=== PATIENT | female | born 1995 | race Hispanic/Latino ===

== ENCOUNTER 2020-12-22 17:18 | Emergency (ER) | payer BC ==
--- NOTE | 2020-12-22 20:15 | Emergency Department Report ---
Blank Doc - Documentation Documentation: This is a 25-year-old female that presents with dizziness. 1- This is a initial triage assessment/medical screening only. Full assessment and work-up will be completed once the patient is in proper hospital gown, ED bed and in a private room setting. This initial assessment/diagnostic orders/clinical plan/ treatment(s) is/are subject to change based on pt's health status, clinical progression and re-assessment by fellow clinical providers in the ED. Further treatment and workup at subsequent clinical providers discretion. Patient/guardians urged not to elope from ED as their condition may be serious if not clinically assessed and managed. 2-labs 3-orthostatic vitals
[2020-12-22 20:30] LABS: Basophils # (Auto) 0.1 K/mm3 (0.0-0.1); Basophils % (Auto) 1.1 % (0.0-1.8); Eosinophils # (Auto) 0.1 K/mm3 (0.0-0.4); Eosinophils % (Auto) 1.3 % (0.0-4.3); Hemoglobin 13.8 gm/dl (10.1-14.3); Lymphocytes # (Auto) 1.7 K/mm3 (1.2-5.4); Lymphocytes % (Auto) 24.9 % (13.4-35.0); Mean Corpuscular HGB Conc 34 % (30-34); Mean Corpuscular Volume 92 fl (79-97); Monocytes # (Auto) 0.4 K/mm3 (0.0-0.8); Monocytes % (Auto) 6.3 % (0.0-7.3); Platelet Count 212 K/mm3 (140-440); Red Blood Count 4.48 M/mm3 (3.65-5.03); Red Cell Distribution Width 12.8 % (13.2-15.2)
[2020-12-22 20:34] LABS: Alanine Aminotransferase 19 units/L (7-56); Albumin 4.3 g/dL (3.9-5); Blood Urea Nitrogen 8 mg/dL (7-17); Calcium 9.3 mg/dL (8.4-10.2); Hemolysis Index 249
[2020-12-22 20:38] LABS: BUN/Creatinine Ratio 11
[2020-12-23] MEDS ORDERED: ONDANSETRON 4 MG ODT TAB PO ONE (08:03)
--- NOTE | 2020-12-23 08:06 | Emergency Department Report ---
ED General Adult HPI - General Chief complaint: Dizziness Stated complaint: DIZZYNESS Time Seen by Provider: 12/22/20 19:55 Source: patient Mode of arrival: Wheelchair Limitations: No Limitations - History of Present Illness Initial comments: 25-year-old female patient presents with complaints of near syncopal episode yesterday while at work. 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 She denies loss of consciousness. No preceding head injuries or headache. She also denies any vision changes, numbness/tingling/weakness in her limbs, confusion, memory loss, or difficulty with speech/ambulation. She reports she has had recurrent episodes similar to this for the past few years. She states she has been evaluated by neurology and other medical research assistant in no causes been found. Patient does report that the area she works in at work was very hot and states she has not been drinking much water due to nausea for the past 3 days. She states she is drinking less than 20 ounces of water a day. She denies any abdominal pain, fever/chills/sweats, cough, shortness of breath, or chest pain. No recent long travel, hemoptysis, leg pain/swelling, or history of DVT/PE. Patient does admit to being on control. - Related Data Previous Rx's Medication Instructions Recorded Last Taken Type Ondansetron [Zofran Odt] 4 mg PO Q8HR PRN #15 tab.rapdis 12/23/20 Unknown Rx Allergies Allergy/AdvReac Type Severity Reaction Status Date / Time No Known Allergies Allergy Unverified 12/22/20 19:14 ED Review of Systems ROS: Stated complaint: DIZZYNESS Other details as noted in HPI Constitutional: denies: chills, diaphoresis, fever, malaise, weakness Respiratory: denies: cough, shortness of breath Cardiovascular: denies: chest pain, palpitations, edema, syncope Gastrointestinal: denies: abdominal pain, nausea, vomiting Genitourinary: denies: urgency, dysuria, frequency, hematuria Musculoskeletal: denies: as per HPI Neurological: denies: headache, numbness, paresthesias, confusion, abnormal gait ED Past Medical Hx - Past Medical History Previous Medical History?: Yes Hx Asthma: Yes - Surgical History Past Surgical History?: Yes Additional Surgical History: tonsils - Medications Home Medications: Home Medications Medication Instructions Recorded Confirmed Last Taken Type Ondansetron [Zofran Odt] 4 mg PO Q8HR PRN #15 tab.rapdis 12/23/20 Unknown Rx ED Physical Exam - General Limitations: No Limitations General appearance: alert, in no apparent distress - Head Head exam: Present: atraumatic, normocephalic - Eye Eye exam: Present: normal appearance, PERRL, EOMI. Absent: scleral icterus - ENT ENT exam: Present: normal exam - Neck Neck exam: Present: normal inspection - Respiratory Respiratory exam: Present: normal lung sounds bilaterally. Absent: respiratory distress - Cardiovascular Cardiovascular Exam: Present: regular rate, normal rhythm - GI/Abdominal GI/Abdominal exam: Present: soft. Absent: tenderness - Neurological Exam Neurological exam: Present: alert, oriented X3, CN II-XII intact, normal gait. Absent: motor sensory deficit - Expanded Neurological Exam Expanded Cerebellar function: Finger to Nose: Normal, Heel to Ya: Normal, Romberg: Normal Sensory exam: Upper Extremity Light Touch: Normal, Lower Extremity Light Touch: Normal Motor strength exam: RUE: 4, LUE: 4, RLE: 4, LLE: 4 Best Eye Response ([place]ara): (4) open spontaneously Best Motor Response ([place]): (6) obeys commands Best Verbal Response (Kyara): (5) oriented [place]ara Total: 15 - Psychiatric Psychiatric exam: Present: normal affect, normal mood - Skin Skin exam: Present: warm, dry, intact, normal color. Absent: rash, cyanosis, diaphoretic, erythema, pallor, ecchymosis ED Course Vital Signs 12/22/20 12/23/20 12/23/20 19:17 08:18 08:33 Temperature 98.8 F Pulse Rate 88 70 Pulse Rate [ 67 Lying] Pulse Rate [ 72 Sitting] Pulse Rate [ 77 Standing] Respiratory 18 16 Rate Blood Pressure 122/72 [Lying] Blood Pressure 142/89 122/72 [Right] Blood Pressure 125/77 [Sitting] Blood Pressure 135/77 [Standing] O2 Sat by Pulse 100 100 Oximetry ED Medical Decision Making - Lab Data Result diagrams: 12/22/20 20:06 12/23/20 00:08 Lab Results 12/22/20 12/22/20 12/22/20 Range/Units 20:06 20:06 20:06 WBC 6.7 (4.5-11.0) K/mm3 RBC 4.48 (3.65-5.03) M/mm3 Hgb 13.8 (10.1-14.3) gm/dl Hct 41.0 (30.3-42.9) % MCV 92 (79-97) fl MCH 31 (28-32) pg MCHC 34 (30-34) % RDW 12.8 L (13.2-15.2) % Plt Count 212 (140-440) K/mm3 Lymph % (Auto) 24.9 (13.4-35.0) % [place] % (Auto) 6.3 (0.0-7.3) % Eos % (Auto) 1.3 (0.0-4.3) % Baso % (Auto) 1.1 (0.0-1.8) % Lymph # (Auto) 1.7 (1.2-5.4) K/mm3 [place] # (Auto) 0.4 (0.0-0.8) K/mm3 Eos # (Auto) 0.1 (0.0-0.4) K/mm3 Baso # (Auto) 0.1 (0.0-0.1) K/mm3 Seg Neutrophils % 66.4 (40.0-70.0) % Seg Neutrophils # 4.4 (1.8-7.7) K/mm3 Sodium 131 L (137-145) mmol/L Potassium 5.6 H (3.6-5.0) mmol/L Chloride 100.8 (98-107) mmol/L Carbon Dioxide 18 L (22-30) mmol/L Anion Gap 18 mmol/L BUN 8 (7-17) mg/dL Creatinine 0.7 (0.6-1.2) mg/dL Estimated GFR > 60 ml/min BUN/Creatinine Ratio 11 % Glucose 128 H (65-100) mg/dL Calcium 9.3 (8.4-10.2) mg/dL Total Bilirubin < 0.20 (0.1-1.2) mg/dL AST 41 H (5-40) units/L ALT 19 (7-56) units/L Alkaline Phosphatase 59 (35-129) units/L Total Protein 7.0 (6.3-8.2) g/dL Albumin 4.3 (3.9-5) g/dL Albumin/Globulin Ratio 1.6 % HCG, Qual Negative (Negative) 12/23/20 Range/Units 00:08 WBC (4.5-11.0) K/mm3 RBC (3.65-5.03) M/mm3 Hgb (10.1-14.3) gm/dl Hct (30.3-42.9) % MCV (79-97) fl MCH (28-32) pg MCHC (30-34) % RDW (13.2-15.2) % Plt Count (140-440) K/mm3 Lymph % (Auto) (13.4-35.0) % [place] % (Auto) (0.0-7.3) % Eos % (Auto) (0.0-4.3) % Baso % (Auto) (0.0-1.8) % Lymph # (Auto) (1.2-5.4) K/mm3 [place] # (Auto) (0.0-0.8) K/mm3 Eos # (Auto) (0.0-0.4) K/mm3 Baso # (Auto) (0.0-0.1) K/mm3 Seg Neutrophils % (40.0-70.0) % Seg Neutrophils # (1.8-7.7) K/mm3 Sodium (137-145) mmol/L Potassium 4.3 D (3.6-5.0) mmol/L Chloride (98-107) mmol/L Carbon Dioxide (22-30) mmol/L Anion Gap mmol/L BUN (7-17) mg/dL Creatinine (0.6-1.2) mg/dL Estimated GFR ml/min BUN/Creatinine Ratio % Glucose (65-100) mg/dL Calcium (8.4-10.2) mg/dL Total Bilirubin (0.1-1.2) mg/dL AST (5-40) units/L ALT (7-56) units/L Alkaline Phosphatase (35-129) units/L Total Protein (6.3-8.2) g/dL Albumin (3.9-5) g/dL Albumin/Globulin Ratio % HCG, Qual (Negative) - EKG Data EKG shows normal: sinus rhythm Rate: normal - EKG Data Interpretation: no acute changes - Medical Decision Making 25-year-old female patient presents with complaints of near syncopal episode yesterday while at work. 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 She denies loss of consciousness. No preceding head injuries or headache. She also denies any vision changes, numbness/tingling/weakness in her limbs, confusion, memory loss, or difficulty with speech/ambulation. She reports she has had recurrent episodes similar to this for the past few years. She states she has been evaluated by neurology and other medical research assistant in no causes been found. Patient does report that the area she works in at work was very hot and states she has not been drinking much water due to nausea for the past 3 days. She states she is drinking less than 20 ounces of water a day. She denies any abdominal pain, fever/chills/sweats, cough, shortness of breath, or chest pain. No recent long travel, hemoptysis, leg pain/swelling, or history of DVT/PE. Patient does admit to being on control. Neuro exam is normal. Anion gap noted to be 18 on CMP. Labs are otherwise WNL. Orthostatic vitals are also normal. Normal rate and rhythm noted on EKG without any acute abnormalities. Patient offered D-dimer testing given control use, however she declines testing and states she would like to go home. Her vitals are normal and she is well-appearing. Discussed in great detail signs and symptoms that should prompt immediate return to the emergency department with patient verbalizes understanding. Also discussed need for follow-up with PCP within 2 to 3 days and importance of rehydration with water. Critical care attestation.: If time is entered above; I have spent that time in minutes in the direct care of this critically ill patient, excluding procedure time. ED Disposition Clinical Impression: Near syncope, Dizziness Disposition: 01 HOME / SELF CARE / HOMELESS Is pt being admited?: No Condition: Stable Instructions: Near-Syncope, Rehydration, Adult Prescriptions: Ondansetron [Zofran Odt] 4 mg PO Q8HR PRN #15 tab.rapdis PRN Reason: Nausea Referrals: PRIMARY [facility]ARE, [Primary Care Provider] - 2-3 Days (dizziness ) [facility] [Provider Group] - 3-5 Days (dizziness ) Forms: Work/School Release Form(ED)
[2020-12-23 08:20] VITALS: BP 122/72
--- NOTE | 2020-12-23 17:44 | Electrocardiograph Report ---
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
== END 2020-12-23 08:33 | disposition home or self-care (01) ==
LOC: ED 17:18
DX: R55 Syncope and collapse (principal); R42 Dizziness and giddiness; J45.909 Unspecified asthma, uncomplicated; Z79.899 Other long term (current) drug therapy; Z98.890 Other specified postprocedural states
CPT/HCPCS: 36415; 80053; 84132; 84703; 85025; 93005; Q0162